=== PATIENT | male | born 1955 | race Caucasian/White ===

== ENCOUNTER 2018-06-01 21:32 | Emergency (ER) | payer OTHER ==
--- NOTE | 2018-06-01 21:47 | PDOC ---
Rapid Medical Evaluation Chief Complaint: Pain, Acute Time Seen by Provider: 06/01/18 21:44 Medical Evaluation: 06/01/18 21:44 62 year old male with pain from upper abdomen radiating to the throat. history GERD GI dr. downing PE: patient alert no tender chest A: gerd? P: EKG patient to the ER for further management of care. 06/01/18 21:46 Discharge Disposition - Diagnosis GERD (gastroesophageal reflux disease) Qualifiers: Esophagitis presence: esophagitis presence not specified Qualified Code(s): K21.9 - Gastro-esophageal reflux disease without esophagitis - Referrals - Patient Instructions - Post Discharge Activity
[2018-06-01 21:51] VITALS: BMI 30.1
--- NOTE | 2018-06-01 23:31 | PDOC ---
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 Patient reports three days of, sharp, retrosternal chest pain, worse with PO intake. Also endorses odynophagia with both solids and liquids. + nausea without vomiting. Symptoms not improved with prescription Omeprazole, Famotidine , and Reglan. Patient follows with GI Dr. Potter. Patient denies MAIN, dysphagia, vision change, palpitations, cough, wheezing, orthopena, PND, leg swelling/pain, F,C, SOB, urinary complaints, hematuria, BPR , diarrhea, constipation, lightheadedness, weakness, sensory changes. PMHx: as noted above ROS: as noted SHx: Denies Etoh, IVDA Allergies: NKDA Past History - Past Medical History Allergies/Adverse Reactions: Allergies Allergy/AdvReac Type Severity Reaction Status Date / Time No Known Allergies Allergy Verified 06/01/18 21:44 COPD: No Diabetes: Yes GI Disorders: Yes (gerd) HTN: Yes Hypercholesterolemia: Yes - Suicide/Smoking/Psychosocial Hx Smoking History: Never smoked Have you smoked in the past 12 months: No Information on smoking cessation initiated: No Hx Alcohol Use: No Drug/Substance Use Hx: No Review of Systems - Review of Systems Comments:: 06/01/18 23:28 GENERAL/CONSTITUTIONAL: No fever or chills. No weakness. HEAD, EYES, EARS, NOSE AND THROAT: No change in vision. No ear pain or discharge. No sore throat. CARDIOVASCULAR: + chest pain. No shortness of breath RESPIRATORY: No cough, wheezing, or hemoptysis. GASTROINTESTINAL: No nausea, vomiting, diarrhea or constipation. GENITOURINARY: No dysuria, frequency, or change in urination. MUSCULOSKELETAL: No joint or muscle swelling or pain. No neck or back pain. SKIN: No rash NEUROLOGIC: No headache, vertigo, loss of consciousness, or change in strength/ sensation. ENDOCRINE: No increased thirst. No abnormal weight change HEMATOLOGIC/LYMPHATIC: No anemia, easy bleeding, or history of blood clots. ALLERGIC/IMMUNOLOGIC: No hives or skin allergy. *Physical Exam - Vital Signs Last Vital Signs Temp Pulse Resp BP Pulse Ox 98.2 F 90 16 135/76 100 06/01/18 21:44 06/01/18 21:44 06/01/18 21:44 06/01/18 21:44 06/01/18 21:44 - Physical Exam Comments: 06/01/18 23:28 GENERAL: Awake, alert, and fully oriented, in no acute distress HEAD: No signs of trauma, normocephalic, atraumatic EYES: PERRLA, EOMI, sclera anicteric, conjunctiva clear ENT: Auricles normal inspection, hearing grossly normal, nares patent, oropharynx clear without exudates. Moist mucosa NECK: Normal ROM, supple, no lymphadenopathy, JVD, or masses LUNGS: No distress, speaks full sentences, clear to auscultation bilaterally HEART: Regular rate and rhythm, normal S1 and S2, no murmurs, rubs or gallops, peripheral pulses normal and equal bilaterally. ABDOMEN: + epigastria ttp. Soft, NDS, normoactive bowel sounds. No guarding, no rebound. No masses EXTREMITIES : Normal inspection, Normal range of motion, no edema. No clubbing or cyanosis. NEUROLOGICAL: Cranial nerves II through XII grossly intact. Normal speech, normal gait, no focal sensorimotor deficits SKIN: Warm, Dry, normal turgor, no rashes or lesions noted ED Treatment Course - LABORATORY CBC & Chemistry Diagram: 06/02/18 00:36 06/02/18 00:36 Medical Decision Making - Medical Decision Making 06/01/18 23:29 62 yo F with h/o hypoplastic pancreas, GERD who p/w retrosternal chest pain, nausea without vomiting, and odynophagia x 3 days. vitals wnl, AF, A&Ox3. + Epigastria ttp. Will consider gastritis, esophagitis, enteritis, colitis, biliary dz. PNA. ACS/VA r/o. Will provide pain control and reasses. Ed Course: 06/01/18 23:51 EKG: NSR with absent KANWAL, STD. Nml interval duration and axis. Nml R wave progression. Absent Q waves. Q waves in lead I, AvL.Nml R wave progression. 06/02/18 01:43 WBC: 12.4 CMP: Unremarkable Trop: neg CMP: Unremarkable 06/02/18 01:52 Pt. endorsed to night team, stable Pending CXR, repeat trop 330 *DC/Admit/Observation/Transfer Diagnosis at time of Disposition: Odynophagia GERD (gastroesophageal reflux disease) Qualifiers: Esophagitis presence: esophagitis presence not specified Qualified Code(s): K21.9 - Gastro-esophageal reflux disease without esophagitis - Discharge Dispostion Disposition: HOME - Referrals Referrals: Paresh Lerma MD [Primary Care Provider] - Alexandr Potter MD [Staff Physician] - - Patient Instructions Printed Discharge Instructions: DI for Epigastric Pain Additional Instructions: Please return to the emergency department with any new or worsening symptoms or concerns. Please follow up with your international coordinator primary care physician within 72 hours. - Post Discharge Activity
[2018-06-01] MEDS ORDERED: ACETAMINOPHEN 1000 MG/100 ML VIAL (NON FORMULARY) IVPB ONE (23:47)
[2018-06-02] MEDS ORDERED: MAG HYDROX/AL HYDROX/SIMETH 30 ML UNIT-DOSE CUP PO ONE (00:01)
[2018-06-02] MEDS ORDERED: LIDOCAINE VISCOUS 2% ORAL/TOP 100 ML BOTTLE MM ONE (00:01)
[2018-06-02] MEDS ORDERED: ACETAMINOPHEN INJECTION 100 ML IVPB ONE (00:32)
[2018-06-02 00:45] LABS: BASO % 0.2 % (0-2.0); HEMATOCRIT 47.5 % (35.4-49); HEMOGLOBIN 16.2 GM/dL (11.7-16.9); LYMPH % 6.9 % (8-40); MCHC 34.1 g/dl (32.0-35.9); MEAN CELL VOLUME 90.8 fl (80-96); MEAN PLT VOLUME 8.6 fl (7.5-11.1); MONO % 2.6 % (3.8-10.2); NEUT % 90.3 % (42.8-82.8); PLATELET COUNT 248 K/MM3 (134-434); RBC 5.23 M/mm3 (4.00-5.60); RDW 12.9 % (11.9-15.9); WHITE BLOOD COUNT 12.4 K/mm3 (4.0-10.0)
--- NOTE | 2018-06-02 01:04 | PDOC ---
Documentation entered by Niki Lambert SCRIBE, acting as scribe for Karen Lowe DO. Karen Lowe DO: This documentation has been prepared by the Petra fonseca Nirvannie, SCRIBE, under my direction and personally reviewed by me in its entirety. I confirm that the documentation accurately reflects all work, treatment, procedures, and medical decision making performed by me. Attending Attestation - Resident Resident Name: EliasNiraj - ED Attending Attestation I have performed the following: I have examined & evaluated the patient, The case was reviewed & discussed with the resident, I agree w/resident's findings & plan - HPI HPI: 06/02/18 01:26 The patient is a 62 year old male, with a significant past medical history of hypoplastic pancreas and GERD who presents to the emergency department with, 3 days of worsening sharp, retrosternal chest pain worsened when eating or drinking. He notes burning in the back of the throat but, denies a sour taste in his mouth. He endorses associated shortness of breath with his pain, prompting his arrival to the ED. He denies any recent fevers, chills, headache or dizziness. He denies any recent dysuria, frequency, urgency or hematuria. Allergies: NKDA Primary Care Physician: Dr. Paresh Lerma - Physicial Exam PE: 06/02/18 01:27 Constitutional: Awake, alert, oriented. No acute distress. Head: Normocephalic. Atraumatic Eyes: PERRL. EOMI. Conjunctivae are not pale. ENT: Mucous membranes are moist and intact. Posterior pharynx without exudates or erythema. Uvula midline. Neck: Supple. Full ROM. No lymphadenopathy. Cardiovascular: Regular rate. Regular rhythm. S1, S2 regular. Distal pulses are 2+ and symmetric. Pulmonary/Chest: No reproducible anterior chest wall tenderness. No evidence of respiratory distress. Clear to auscultation bilaterally No wheezing, rales or rhonchi. Abdominal: Soft and non-distended. There is no tenderness. No rebound, guarding or rigidity. No organomegaly. No palpable masses. Good bowel sounds. Back: No CVA tenderness. Musculoskeletal: No edema. No cyanosis. No clubbing. Full range of motion in all extremities. No calf tenderness. Radial/pedal pulses are intact and 2+ bilaterally Skin: Skin is warm and dry. No petechiae. No purpura. Neurological: Alert and oriented to person, place, and time. Cranial nerves II -XII are grossly intact. Normal speech. Strength is grossly symmetric. No sensory deficits. Psychiatric: Good eye contact. Normal interaction, affect and behavior. - Medical Decision Making 06/01/18 23:58 I, Dr. Karen Lowe, DO, attest that this document has been prepared under my direction and personally reviewed by me in its entirety. I further attest, that it accurately reflects all work, treatment, procedures and medical decision -making performed by me. 06/02/18 00:59 a/p: 62yo male with hx of pancreatic disease and gerd with burning sensation to chest and sour taste in mouth -no sob -midsternal cp -suspect worsening gerd, however will eval for acs -no rashes -will send labs, ekg, cxr -will medicate -pt follows with dr downing for GI -will monitor and reassess 06/02/18 01:42 mildly elevated wbc pending cxr 06/02/18 02:07 pt signed out pending repeat trop and cxr 06/02/18 02:08 Heart Score/ECG Review - ECG Intrepretation Comment:: 06/02/18 00:59 sinus at 79, nl axis, nl interval, q waves i and avl, no acute st/t wave findings
[2018-06-02 01:30] LABS: ALBUMIN 4.1 g/dl (3.4-5.0); ALK PHOS 133 U/L (45-117); ANION GAP 8 MMOL/L (8-16); BILIRUBIN,TOTAL 1.5 mg/dL (0.2-1); BLOOD UREA NITROGEN 8 mg/dL (7-18); CALCIUM 9.2 mg/dL (8.5-10.1); CHLORIDE 104 mmol/L (98-107); CO2 23 mmol/L (21-32); CREATININE 0.6 mg/dL (0.55-1.3); GLUCOSE,RANDOM 216 mg/dL (74-106); POTASSIUM 4.1 mmol/L (3.5-5.1); SGOT/AST 17 U/L (15-37); SGPT/ALT 31 U/L (13-61); SODIUM 135 mmol/L (136-145)
[2018-06-02] MEDS ORDERED: LIDOCAINE VISCOUS 2% ORAL/TOP 20 ML UNIT-DOSE CUP ONE (03:10)
[2018-06-02] MEDS ORDERED: MAG HYDROX/AL HYDROX/SIMETH 30 ML UNIT-DOSE CUP ONE (03:11)
--- NOTE | 2018-06-02 05:07 | PDOC ---
*Physical Exam - Vital Signs Last Vital Signs Temp Pulse Resp BP Pulse Ox 98.2 F 90 16 135/76 100 06/01/18 21:44 06/01/18 21:44 06/01/18 21:44 06/01/18 21:44 06/01/18 21:44 - Physical Exam Comments: 62 year old male signed out to me pending 2nd troponin and CXR. Both WNL . Will DC with follow up instructions and return precautions. 06/02/18 05:05 ED Treatment Course - LABORATORY CBC & Chemistry Diagram: 06/02/18 00:36 06/02/18 00:36 - ADDITIONAL ORDERS Additional order review: Laboratory Results 06/02/18 06/02/18 06/02/18 03:28 00:36 00:36 Sodium 135 L Potassium 4.1 Chloride 104 Carbon Dioxide 23 Anion Gap 8 BUN 8 Creatinine 0.6 Creat Clearance w eGFR 136.08 Random Glucose 216 H Calcium 9.2 Total Bilirubin 1.5 H AST 17 ALT 31 Alkaline Phosphatase 133 H Creatine Kinase 128 100 Troponin I < 0.02 < 0.02 Total Protein 8.0 Albumin 4.1 06/02/18 00:36 RBC 5.23 MCV 90.8 MCHC 34.1 RDW 12.9 MPV 8.6 Neutrophils % 90.3 H Lymphocytes % 6.9 L Monocytes % 2.6 L Eosinophils % 0.0 Basophils % 0.2 - Medications Given in the ED: ED Medications Discontinued Medications Generic Name Dose Route Start Last Admin Trade Name Freq PRN Reason Stop Dose Admin Acetaminophen 1,000 mg 06/01/18 23:47 06/02/18 01:31 Ofirmev Injection - IVPB 06/01/18 23:48 1,000 mg ONCE ONE Administration Al Hydroxide/Mg Hydroxide 30 ml 06/02/18 00:01 06/02/18 02:05 Mylanta Oral Suspension - PO 06/02/18 00:02 30 ml ONCE ONE Administration Lidocaine HCl 15 ml 06/02/18 00:01 06/02/18 02:15 Xylocaine 2% Viscous MM 06/02/18 00:02 15 ml ONCE ONE Administration *DC/Admit/Observation/Transfer Diagnosis at time of Disposition: Odynophagia GERD (gastroesophageal reflux disease) Qualifiers: Esophagitis presence: esophagitis presence not specified Qualified Code(s): K21.9 - Gastro-esophageal reflux disease without esophagitis - Referrals Referrals: Alexandr Potter MD [Staff Physician] - Paresh Lerma MD [Primary Care Provider] - - Patient Instructions Printed Discharge Instructions: DI for Epigastric Pain Additional Instructions: Please return to the emergency department with any new or worsening symptoms or concerns. 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 - Post Discharge Activity
[2018-06-02 05:22] VITALS: BP 123/77; PULSE 87; TEMP 98.6
--- NOTE | 2018-06-02 11:20 | EKG ---
Test Reason : Blood Pressure : / mmHG Vent. Rate : 080 BPM Atrial Rate : 080 BPM P-R Int : 176 ms QRS Dur : 096 ms QT Int : 374 ms P-R-T Axes : 056 015 039 degrees QTc Int : 431 ms NORMAL SINUS RHYTHM NORMAL ECG NO PREVIOUS ECGS AVAILABLE Confirmed by CORBIN ROOT MD ([id number]) on 06/02/2018 11:19:59 AM Referred By: Confirmed By:CORBIN ROOT MD
--- NOTE | 2018-06-02 11:23 | EKG ---
Test Reason : Blood Pressure : / mmHG Vent. Rate : 079 BPM Atrial Rate : 079 BPM P-R Int : 178 ms QRS Dur : 098 ms QT Int : 374 ms P-R-T Axes : 060 017 047 degrees QTc Int : 428 ms NORMAL SINUS RHYTHM POSSIBLE LATERAL INFARCT , AGE UNDETERMINED ABNORMAL ECG NO PREVIOUS ECGS AVAILABLE Confirmed by CORBIN ROOT MD ([id number]) on 06/02/2018 11:22:48 AM Referred By: Confirmed By:CORBIN ROOT MD
== END 2018-06-02 05:22 | disposition home or self-care (01) ==
LOC: JER 21:32
PROC: 3E033NZ Introduction of Analgesics, Hypnotics, Sedatives into Peripheral Vein, Percutaneous Approach (ICD-10-PCS; principal; 2018-06-01)
DX: K21.9 Gastro-esophageal reflux disease without esophagitis (principal); I10 Essential (primary) hypertension; E78.00 Pure hypercholesterolemia, unspecified; Q45.0 Agenesis, aplasia and hypoplasia of pancreas
CPT/HCPCS: 36415; 71046-TC-FY; 80053; 82550; 84484; 85025; 93005; 93010; 99284-25; J0131

== ENCOUNTER 2020-02-12 10:54 | Emergency (ER) | payer OTHER ==
[2020-02-12 11:18] VITALS: BP 107/72; PULSE 98; BMI 29.9
[2020-02-12 13:59] LABS: BASO % 0.3 % (0-2.0); HEMATOCRIT 45.1 % (35.4-49); HEMOGLOBIN 15.7 GM/dL (11.7-16.9); LYMPH % 20.3 % (8-40); MCH 30.4 pg (25.7-33.7); MCHC 34.7 g/dl (32.0-35.9); MEAN CELL VOLUME 87.6 fl (80-96); MEAN PLT VOLUME 9.1 fl (7.5-11.1); MONO % 12.4 % (3.8-10.2); PLATELET COUNT 158 K/MM3 (134-434); RBC 5.15 M/mm3 (4.00-5.60); WHITE BLOOD COUNT 5.1 K/mm3 (4.0-10.0)
[2020-02-12 14:20] LABS: CALCIUM 8.3 mg/dL (8.5-10.1)
[2020-02-12 14:21] LABS: ALBUMIN 3.3 g/dl (3.4-5.0); BLOOD UREA NITROGEN 8.7 mg/dL (7-18)
[2020-02-12 14:25] LABS: TOT PROT 7.3 g/dl (6.4-8.2)
[2020-02-12 14:40] LABS: CREATININE 0.8 mg/dL (0.55-1.3)
[2020-02-12] MEDS ORDERED: BAMLANIVIMAB 700 MG in SODIUM CHLORIDE 180 ML IVPB ONE (14:43)
[2020-02-12 16:07] VITALS: TEMP 98.5
== END 2020-02-12 18:10 | disposition home or self-care (01) ==
LOC: JER 10:54
DX: U07.1 COVID-19 (principal)
CPT/HCPCS: 36415; 71046-TC-FY; 80053; 83690; 85025; 87426; 99284-25; M0239; Q0239

== ENCOUNTER 2020-02-16 09:37 | Emergency (ER) | payer OTHER ==
[2020-02-16 09:50] VITALS: BP 126/76; PULSE 93; TEMP 98.5; BMI 26.6
[2020-02-16] MEDS ORDERED: diphenhydrAMINE HCL 25 MG CAPSULE (FP) PO ONE ×2 (11:01→11:52)
[2020-02-16] MEDS ORDERED: DEXAMETHASONE 4 MG TABLET (FP) PO ONE (11:02)
[2020-02-16] MEDS ORDERED: SODIUM CHLORIDE 1,000 ML IV STA (11:02)
[2020-02-16] MEDS ORDERED: ALBUTEROL SO4 2.5/IPRATROPIUM 0.5 INH SOL 3 ML VIAL.NEB. NEB ONE ×2 (11:02→11:52)
[2020-02-16] MEDS ORDERED: ALBUTEROL SO4 0.083% IH SOL 2.5 MG/3 ML VIAL.NEB. NEB ONE (11:20)
[2020-02-16] MEDS ORDERED: DEXAMETHASONE SOD PHOSPHATE 10 MG/1 ML VIAL ONE (11:52)
[2020-02-16] MEDS ORDERED: FAMOTIDINE 10 MG TABLET PO ONE (12:29)
[2020-02-16 12:38] LABS: BASO % 0.3 % (0-2.0); HEMATOCRIT 43.7 % (35.4-49); HEMOGLOBIN 14.9 GM/dL (11.7-16.9); LYMPH % 23.3 % (8-40); MCH 30.1 pg (25.7-33.7); MCHC 34.2 g/dl (32.0-35.9); MONO % 11.9 % (3.8-10.2); NEUT % 63.5 % (42.8-82.8); PLATELET COUNT 286 K/MM3 (134-434); RBC 4.96 M/mm3 (4.00-5.60); RDW 12.8 % (11.9-15.9); WHITE BLOOD COUNT 6.7 K/mm3 (4.0-10.0)
[2020-02-16] MEDS ORDERED: FAMOTIDINE 20 MG TABLET ONE (12:43)
[2020-02-16 13:03] LABS: CHLORIDE 106 mmol/L (98-107); SODIUM 140 mmol/L (136-145)
[2020-02-16 13:05] LABS: CALCIUM 8.2 mg/dL (8.5-10.1)
[2020-02-16 13:06] LABS: ALBUMIN 3.2 g/dl (3.4-5.0); ANION GAP 7 MMOL/L (8-16); BLOOD UREA NITROGEN 10.3 mg/dL (7-18); CO2 27 mmol/L (21-32); GLUCOSE,RANDOM 140 mg/dL (74-106)
[2020-02-16 13:09] LABS: CREATININE 0.6 mg/dL (0.55-1.3); SGOT/AST 51 U/L (15-37); SGPT/ALT 42 U/L (13-61)
[2020-02-16 13:11] LABS: BILIRUBIN,TOTAL 0.9 mg/dL (0.2-1); TOT PROT 6.8 g/dl (6.4-8.2)
[2020-02-16 13:12] LABS: ALK PHOS 115 U/L (45-117)
== END 2020-02-16 14:41 | disposition home or self-care (01) ==
LOC: JER 09:37
PROC: 3E0F7GC Introduction of Other Therapeutic Substance into Respiratory Tract, Via Natural or Artificial Opening (ICD-10-PCS; principal; 2020-02-16)
PROC: 3E0337Z Introduction of Electrolytic and Water Balance Substance into Peripheral Vein, Percutaneous Approach (ICD-10-PCS; 2020-02-16)
DX: U07.1 COVID-19 (principal); R21 Rash and other nonspecific skin eruption; L28.2 Other prurigo
CPT/HCPCS: 36415; 80053; 82550; 84484; 85025; 99284-25